=== PATIENT | male | born 1995 | race Caucasian/White ===

== ENCOUNTER 2020-04-25 00:39 | Emergency (ER) | payer SELFPAY ==
[2020-04-25 00:40] VITALS: BP 140/86; PULSE 92; RESP 16; TEMP 37; O2SAT 100; BMI 20.5
--- NOTE | 2020-04-25 00:48 | ED.DCSUM_ITS ---
History of Present Illness Chief Complaint: Abd Pain Narrative: Patient is a 24-year-old male who presents with abdominal pain. His abdominal pain began yesterday. He complains of right flank pain radiating to the right lower abdomen. Yesterday it waxed and waned but is more constant steady today. He describes it as sharp. He also complains of dysuria and urinary frequency and urgency with one episode of hematuria. The symptoms began several days ago. Over the weekend he also had a fever with a temperature of 101.1. No history of prior similar symptoms. No abdominal surgeries. He denies medical history. Past Medical History - Allergies and Home Meds Allergies/Adverse Reactions: Allergies No Known Allergies Allergy (Verified 04/25/20 00:42) Primary Care Physician: Les Monzon DO [Primary Care Provider] - Past Medical History: None Smoking Status: Never smoker Review of Systems All systems negative except as indicated General: Reports: Fever Eyes: Denies: Visual changes - bilaterally ENT: Denies: Bilateral ear pain Cardiovascular: Denies: Chest pain Gastrointestinal: Reports: Abdominal pain. Denies: Nausea, Vomiting, Diarrhea Genitourinary: Reports: Dysuria, Hematuria, Frequency Skin: Denies: Rash Neurological: Denies: Headache Physical Exam Vital Signs/Narrative: Vital Signs Temp Pulse Resp BP Pulse Ox 04/25/20 00:40 98.6 F 92 16 140/86 H 100 Inital Vital Signs reviewed: Yes General: Well nourished Head: Normocephalic Eyes: EOMI ENT: Moist mucous membranes Neck: Supple Cardiovascular: Regular rate, Regular rhythm Respiratory: No distress, CTA bilaterally Abdomen: Soft, Tender - Right lower abdominal and right CVA tenderness Skin: Normal color Neurological: Alert Psychological: Normal affect Diagnostic/Tx/Re-eval Impressions Abdomen/Pelvis CT 04/25/20 00:48 IMPRESSION: Mild splenomegaly otherwise negative exam. No hydronephrosis or urinary tract stones. Electronically Signed: Salvador Lee MD at 2:36 EDT , Service support , 04/25/20 00:48 Abdomen/Pelvis without Cont [CT] Stat Laboratory Results 04/25/20 04/25/20 04/25/20 00:40 00:40 01:00 WBC 9.1 RBC 4.75 Hgb 14.6 Hct 42.2 MCV 88.8 MCH 30.7 MCHC 34.6 RDW Std Deviation 36.6 RDW Coeff of Jhonatan 11.4 L Plt Count 335 MPV 9.9 Immature Gran % (Auto) 0.300 Neut % (Auto) 67.0 Lymph % (Auto) 22.5 Cannon % (Auto) 9.5 Eos % (Auto) 0.5 Baso % (Auto) 0.2 Absolute Neuts (auto) 6.1 Absolute Lymphs (auto) 2.05 Nucleated RBC % 0 Sodium 140 Potassium 3.7 Chloride 106 Carbon Dioxide 29.0 Anion Gap 5 BUN 10 Creatinine 1.04 Estim Creat Clear Calc 105.51 Est GFR (MDRD) Af Amer 111 Est GFR (MDRD) Non-Af 92 BUN/Creatinine Ratio 9.6 L Glucose 101 Calcium 9.2 Total Bilirubin 0.60 AST 11 L ALT 19 Alkaline Phosphatase 63 Total Protein 8.2 Albumin 4.1 Globulin 4.1 Albumin/Globulin Ratio 1.0 Urine Color Yellow Urine Clarity Cloudy Urine pH 6.5 Ur Specific [place] 1.015 Urine Protein 100 H Urine Glucose (UA) Normal Urine Ketones 50 H Urine Occult Blood 250 H Urine Nitrite Negative Urine Bilirubin Negative Urine Urobilinogen Normal Ur Leukocyte Esterase 500 H Urine RBC 50-100 SEEN Urine WBC 50-100 SEEN Ur Squamous Epith Cells 0 SEEN Urine Bacteria 0 SEEN Urine Mucus 0 SEEN - Medical Decision Making Patient was treated with IV fluids and Toradol. He feels much better on reevaluation. CT imaging as above negative for urinary tract calculi. His urine is consistent with infection. Given his flank pain and fever I do believe this represents pyelonephritis. However patient does not have vomiting he is able to tolerate p.o. his white blood cell count is normal and he is no longer running fever. Therefore I do feel he is appropriate for outpatient management. I did refer to urology for follow-up. Patient understands to return for new or worsening symptoms and was instructed on specific signs and symptoms to monitor for and the patient was discharged. ED Disposition - Plan for ED Patient: Disposition: Home or Assisted Living Diagnosis: Pyelonephritis Instructions: Urinary Tract Infections in Men, Pyelonephritis Prescriptions: Smz/Tmp Ds [Bactrim Ds] 1 tab PO BID #20 tab Prescription Printed Referrals: Les Monzon DO [Primary Care Provider] - Kwabena Jesus MD [STAFF PHYSICIAN] -
--- NOTE | 2020-04-25 00:48 | CT_ITS ---
STUDY: CT ABDOMEN AND PELVIS WITHOUT CONTRAST REASON FOR EXAM: Male, 24 years old. Right-sided abdominal pain with urinary frequency. RADIATION DOSAGE (If Supplied By Facility): CTDIvol = ( 6.28 ) mGy, DLP = ( 394.58 ) mGycm TECHNIQUE: Transaxial images were obtained from the dome of the diaphragm to the symphysis pubis without oral contrast, and without intravenous contrast. Sagittal and coronal images were reconstructed. Individualized dose optimization techniques were used for this CT. COMPARISON: None. FINDINGS: The visualized lung bases are unremarkable. The visualized portions of the heart are within normal limits. Normal liver. Normal gallbladder and extrahepatic biliary system. There is mild splenomegaly. Normal pancreas. Normal bilateral adrenal glands. Normal right kidney. Normal left kidney. Normal visualized stomach. Normal small intestine. Normal colon. The appendix is visualized and appears normal. Normal abdominal aorta. Normal inferior vena cava. Normal retroperitoneum. No intra-abdominal free air. Normal urinary bladder. Normal visualized prostate gland. Normal abdominal wall. Normal osseous structures. CT/Abdomen/Pelvis without Cont IMPRESSION: Mild splenomegaly otherwise negative exam. No hydronephrosis or urinary tract stones. Electronically Signed: Salvador Lee MD at 2:36 EDT , Service support ,
[2020-04-25] MEDS: 0.9% Normal Saline 1,000 ML 1000 ML IV (01:03)
[2020-04-25] MEDS: Ketorolac 30 MG/ML Syringe IV (01:03)
[2020-04-25 01:05] LABS: Absolute Lymphocyte Count 2.05 X10^3/uL (0.83-4.51); Absolute Neutrophil Count 6.1 X10^3/uL (2.0-7.7); Basophil# 0.02 X10^3/uL; Basophil% 0.2 % (0-1); Eosinophil# 0.05 X10^3/uL; Eosinophils% 0.5 % (0-5); Hematocrit 42.2 % (40-54); Hemoglobin 14.6 g/dL (13.0-16.5); Lymphocyte # 2.05 X10^3/ul (4.0); Lymphocyte % 22.5 % (19-41); Mean Corp Hgb Conc 34.6 g/dL (32-36); Mean Corpuscular Hgb 30.7 pg (27.0-32.0); Mean Corpuscular Volume 88.8 fL (80-94); Mean Platelet Vol. 9.9 fl (6.2-12.0); Monocyte# 0.87 X10^3/uL; Monocyte% 9.5 % (0-10); NRBC Flagged by Analyzer 0 % (0-5); Neutrophil # 6.09 X10^3/uL (2.7-7.7); Platelet Count 335 K/mm3 (150-450); RBC Distribution Width CV 11.4 % (11.6-14.6); RBC Distribution Width SD 36.6 fl (35.1-43.9); Red Blood Count 4.75 M/mm3 (4.6-6.2); White Blood Count 9.1 K/mm3 (4.4-11.0)
[2020-04-25 01:11] LABS: Bacteria 0 SEEN /hpf (None Seen); Color, Urine Yellow (Yellow); Glucose, Dipstick Normal (Normal); Ketone-Dipstick 50 mg/dl (Negative); Leukocyte Esterase-Dipstick 500 /ul (Negative); Mucous, Urine 0 SEEN /hpf (<or=2+); Nitrite-Dipstick Negative (Negative); Occult Blood-Urine 250 /ul (Negative); Protein-Dipstick 100 mg/dl (Negative); Specific Gravity, Urine 1.015 (1.002-1.030); Squamous Epithelial Cells - UA 0 SEEN /hpf (0-5); Urine Bilirubin Dipstick Negative (Negative); Urine Clarity Cloudy (Clear); Urine Urobilinogen Normal (Normal); Urine pH 6.5 (5.0 - 8.0)
[2020-04-25 01:17] LABS: Red Blood Cells-Urine 50-100 SEEN /hpf (0-5); White Blood Cells 50-100 SEEN /hpf (0-5)
[2020-04-25 01:18] LABS: AST(SGOT) 11 U/L (15-37); Alanine Aminotransfer ALT/SGPT 19 U/L (16-61); Albumin, Serum 4.1 g/dL (3.2-5.0); Alkaline Phosphatase 63 U/L (45-117); Anion Gap 5 (5-15); BUN 10 mg/dL (7-18); BUN/Creat Ratio 9.6 RATIO (10-20); Calcium,Total 9.2 mg/dL (8.5-10.1); Chloride 106 mmol/L (98-107); Creatinine, Serum 1.04 mg/dL (0.70-1.30); EST Glomerular Filtration Rate 92 mL/min (>60); Est Glom Filt Rate - Afr Amer 111 mL/min (>60); Estimated Creatinine Clearance 105.51 ml/min; Globulin 4.1 g/dL (2.2-4.2); Glucose 101 mg/dL (74-106); Potassium 3.7 mmol/L (3.5-5.1); Protein, Total 8.2 g/dL (6.4-8.2); Sodium Level 140 mmol/L (136-145)
[2020-04-25] MEDS: Smz/Tmp Ds Tablet 1 TABLET PO (03:13)
[2020-04-25 03:15] VITALS: BP 105/61; PULSE 66; RESP 15; O2SAT 98
== END 2020-04-25 03:16 | disposition home or self-care (01) ==
PROVIDERS: Emergency Provider Emergency Medicine; PCP Family Medicine
DX: N12 Tubulo-interstitial nephritis, not specified as acute or chronic (principal)
CPT/HCPCS: 74176; 80053; 81001; 85025; 87086; 87088; 87186; 96361; 96374; 99284; J7030; A4216